=== PATIENT | female | born 1965 | race Caucasian/White ===

== ENCOUNTER → 2017-06-04 | Outpatient (CLI) | payer OTHER ==
[~2017-06-04] MED LIST: DIURETIC PO; MULT-506 PO; OMEG10007 PO; [UNRECOGNIZED DRUG - OTHER] PO; [UNRECOGNIZED DRUG - OTHER] PO
--- NOTE | 2017-06-06 08:16 | MAMMOGRAPHY REPORT ---
BILATERAL DIGITAL DIAGNOSTIC MAMMOGRAM TOMOSYNTHESIS WITH CAD AND TARGETED RIGHT ULTRASOUND: 7 CLINICAL HISTORY: 51-year-old woman presents late for a short follow-up previously recommended in the right breast, for a 7 mm nodular asymmetry along the posterior nipple line on the MLO view. Cysts a nd cyst clusters were identified in the right breast on ultrasound. Also due for annual bilateral sc reening exam. TECHNIQUE: Bilateral breast tomosynthesis in addition to standard 2D mammography was performed. Curre nt study was also evaluated with a Computer Aided Detection (CAD) system. COMPARISON: Comparison is made to exams dated: 07/17/2016 ultrasound, 07/07/2016 mammogram, 07/17/20 16 mammogram, 07/07/2015 mammogram, 07/07/2014 mammogram, and 07/07/2013 mammogram - [facility]. BREAST COMPOSITION: There are scattered areas of fibroglandular density in both breasts. FINDINGS: The previously observed 7 mm dense asymmetry, 3.4 cm distal to the nipple on the MLO view i s no longer seen. A lobulated mass in the lateral anterior right breast on the spot compression CC v iew is no longer seen, most likely representing a fluctuating cyst. No new suspicious mass, suspicio us microcalcifications, asymmetry or focal area of distortion is seen bilaterally. Targeted ultrasound was performed in the lateral and medial right breast to reassess the previously o bserved complicated cyst versus cyst cluster in the 2:00 axis, the previously observed cyst cluster i n the 7:00 axis and simple cyst in the 10:00 axis. In the 2:00 right breast, 3 cm from the nipple, a cyst with thin internal nonvascular septations versus cyst cluster is again seen, measuring 6.7 x 2. 8 x 8.5 mm. This has not significantly changed, given slight differences in measuring technique. A cyst cluster is no longer identified in the 7:00 axis, 3 cm from the nipple, confirming benignity and likely correlating with the mammographic finding identified on the 07/17/2016 screening exam. A branden ign anechoic simple cyst is again seen in the 10:00 right breast, 2 cm from the nipple, measuring 6.8 x 2.7 x 6.0 mm. IMPRESSION: ACR BI-RADS CATEGORY 2: BENIGN, TARGETED ULTRASOUND ACR BI-RADS CATEGORY 2: BENIGN 1. The 7 mm nodular asymmetry is no longer seen in the right breast on the MLO view, and no cyst clu ster is identified in the 7:00 axis of the right breast on ultrasound, confirming benignity, likely a fluctuating cyst cluster. 2. Other cysts remain within the right breast in the 10:00 and 2:00 axes, compatible with benign fib rocystic changes. 3. Overall, there is no mammographic or targeted sonographic evidence of malignancy. Recommend rout ine screening in 1 year. These results and recommendations were discussed with the patient at the time of the exam. Approximately 10% of breast cancers are not detected with mammography. A negative mammographic report should not delay biopsy if a clinically suggestive mass is present. Mala Hudson M.D. ay/:06/04/2017 12:25:15 Skin Piler: Michelle LIANG)(Anabella), [facility] letter sent: Normal 1/2 BI-RADS Code: ACR BI-RADS Category 2: Benign Ultrasound BI-RADS: ACR BI-RADS Category 2: Benign
== END | disposition home or self-care (01) ==
LOC: C.MAMM 10:28
PROVIDERS: ATTEND Family Medicine
DX: N60.01 Solitary cyst of right breast (principal)